=== PATIENT | male | born 1995 | race Hispanic/Latino ===

== ENCOUNTER 2017-06-26 23:25 | Emergency (ER) | payer BC ==
[2017-06-27 00:01] VITALS: BP 147/68; PULSE 74; RESP 16; TEMP 99.1; O2SAT 99
[2017-06-27] MEDS ORDERED: Oxycodone/Acetaminophen 5/325 mg Tab PO STA (00:05)
--- NOTE | 2017-06-27 00:17 | ED PDOC ---
HPI: CCC, URI, Sore Throat Time Seen by Provider: 06/27/17 00:14 Chief Complaint (Nursing): ENT Problem Chief Complaint (Provider): ear pain History Per: Patient (21 y/o male on augmentin x 7 days for sinusitis notes left ear pain today not improved with motrin. Denies any vomiting/etc.) Past Medical History Reviewed: Historical Data, Nursing Documentation, Vital Signs Vital Signs: Last Vital Signs Temp 99.1 F 06/26/17 23:58 Pulse 74 06/26/17 23:58 Resp 16 06/26/17 23:58 BP 147/68 06/26/17 23:58 Pulse Ox 99 06/26/17 23:58 - Family History Family History: States: No Known Family Hx - Home Medications Home Medications: Ambulatory Orders Medication Instructions Recorded Cefdinir [Omnicef] 300 mg PO DAILY #7 tab 06/27/17 Pseudoephedrine [Sudafed Tab] 60 mg PO Q6 PRN #20 tab 06/27/17 - Allergies Allergies/Adverse Reactions: Allergies Allergy/AdvReac Type Severity Reaction Status Date / Time No Known Allergies Allergy Verified 06/27/17 00:05 Review of Systems ROS Statement: Except As Marked, All Systems Reviewed And Found Negative ENT: Positive for: Ear Pain Physical Exam - Reviewed Nursing Documentation Reviewed: Yes Vital Signs Reviewed: Yes - Physical Exam Appears: Positive for: Well, Non-toxic, No Acute Distress Head Exam: Positive for: ATRAUMATIC, NORMAL INSPECTION, NORMOCEPHALIC Skin: Positive for: Normal Color, Warm, DRY Eye Exam: Positive for: EOMI, Normal appearance, PERRL ENT: Negative for: Normal ENT Inspection (left TM with erythema) Neck: Positive for: Normal, Painless ROM Cardiovascular/Chest: Positive for: Regular Rate, Rhythm Respiratory: Positive for: CNT, Normal Breath Sounds Gastrointestinal/Abdominal: Positive for: Normal Exam, Bowel Sounds, Soft Back: Positive for: Normal Inspection Extremity: Positive for: Normal ROM Neurologic/Psych: Positive for: Alert, Oriented - ECG O2 Sat by Pulse Oximetry: 99 - Progress ED Course And Treament: percocet 5/325 mg x 1 dose Disposition - Clinical Impression Clinical Impression: Otitis media - Patient ED Disposition Is Patient to be Admitted: No - Disposition Referrals: Suman Ramirez MD [Staff Provider] - Disposition: Routine/Home Disposition Time: 00:16 Condition: FAIR Prescriptions: Cefdinir [Omnicef] 300 mg PO DAILY #7 tab Pseudoephedrine [Sudafed Tab] 60 mg PO Q6 PRN #20 tab PRN Reason: Nasal Congestion Instructions: Otitis Media (ED) Forms: [facility] ([place]ish), [facility] ED School/Work Excuse
== END 2017-06-27 00:50 | disposition home or self-care (01) ==
LOC: H.ER 23:25 → EDBD 23:25 → H.ER 06-27 00:50
DX: H66.92 Otitis media, unspecified, left ear (principal)